=== PATIENT | male | born 1955 | race Caucasian/White ===

== ENCOUNTER 2019-03-15 15:53 | Emergency (ER) | payer MEDICAID ==
[~2019-03-15] VITALS: Ht 182.9 cm; Wt 82.0 kg
[2019-03-15] MEDS ORDERED: LISI-167 PO (17:11)
--- NOTE | 2019-03-15 17:14 | NUR ---
PT C/O CP, SOB WITH PRODUCTIVE COUGH, AND DIZZINESS STARTING THIS AM. PT STATES CP IS 5/10 AT THIS TIME, EKG COMPLETED. PT TO NIBP, CONT PULSE OX, CARD MONITOR. PT WITH EVELVATED BP 181/102, PT STATES HE WAS PREVIOUSLY TAKING LISINOPRIL FOR HIS BP CONTROL BUT STOPPED 3 WEEKS AGO BECAUSE IT GAVE HIM MUSCLE CRAMPS, ERMD UPDATED
[2019-03-15 17:16] LABS: BASOPHILS # (AUTO) 0.03 x10^3/uL (0-0.1); BASOPHILS % (AUTO) 1 % (0-1); EOSINOPHILS # (AUTO) 0.01 x10^3/uL (0-0.4); EOSINOPHILS % (AUTO) 0 % (1-7); LYMPHOCYTES # (AUTO) 1.26 x10^3/uL (1-3.4); LYMPHOCYTES % (AUTO) 25 % (22-44); MD NO; MEAN CORPUSCULAR HEMOGLOBIN 31.9 pg (27.5-34.5); MEAN CORPUSCULAR HGB CONC 32.9 g/dL (33.2-36.2); MEAN CORPUSCULAR VOLUME 96.9 fL (81-97); MEAN PLATELET VOLUME 8.4 fL (7.4-10.4); MONOCYTES # (AUTO) 0.53 x10^3/uL (0.2-0.8); MONOCYTES % (AUTO) 11 % (2-9); NEUTROPHILS # (AUTO) 3.23 x10^3/uL (1.8-6.8); NEUTROPHILS % (AUTO) 64 % (42-75); PLATELET COUNT 282 x10^3/uL (130-400); RED BLOOD COUNT 5.01 x10^6/uL (4.38-5.82); RED CELL DISTRIBUTION WIDTH 14.4 % (9.4-14.8)
[2019-03-15] MEDS ORDERED: ENALAPRILAT 1.25 MG/ML, 1ML ONE (17:23)
[2019-03-15 17:28] LABS: ALANINE AMINOTRANSFERASE 81 U/L (12-78); ALBUMIN 3.4 g/dL (3.4-5.0); ANION GAP 10 mmol/L (5-15); CALCIUM 8.8 mg/dL (8.5-10.1); CHLORIDE 105 mmol/L (98-107); CREATININE 0.85 mg/dL (0.7-1.3)
[2019-03-15 17:29] LABS: D-DIMER 0.65 ug/mlFEU (0.00-0.52); INTERNATIONAL NORMALIZED RATIO 0.95 (0.93-1.1)
[2019-03-15] MEDS ORDERED: ASPIRIN 81 MG TABLET CHEW ONE (17:30)
[2019-03-15] MEDS ORDERED: ENALAPRILAT 1.25 MG/ML, 2ML IV ONE (17:30)
[2019-03-15 17:33] LABS: ALKALINE PHOSPHATASE 114 U/L (45-117); BILIRUBIN,TOTAL 0.2 mg/dL (0.2-1.0); TOTAL PROTEIN 7.5 g/dL (6.4-8.2); TROPONIN I < 0.015 ng/mL (0.000-0.045)
[2019-03-15] MEDS ORDERED: ASPIRIN 81 MG TABLET CHEW PO ONE (18:00)
[2019-03-15] MEDS ORDERED: OMNIPAQUE 350 MG/ML, 100ML BOTTLE ONE (18:37)
--- NOTE | 2019-03-15 18:50 | NUR ---
PT RESTING IN BED, BP GOING DOWN, NAD NOTED, REPORT TO NOC RN
[2019-03-15] MEDS ORDERED: AZITHROMYCIN 500 MG TABLET ONE (19:30)
[2019-03-15] MEDS ORDERED: AZITHROMYCIN 500 MG TABLET PO ONE (19:30)
[2019-03-15 19:33] VITALS: BP 171/98
== END 2019-03-15 19:43 | disposition home or self-care (01) ==
LOC: ED 17:52
DX: J18.9 Pneumonia, unspecified organism (principal); R05 Cough; R06.00 Dyspnea, unspecified
CPT/HCPCS: 36415; 71045; 71275; 80053; 80307; 84484; 85025; 85379; 85610; 85730; 93005; 96374; 99284; Q9967

== ENCOUNTER 2020-08-26 11:15 | Emergency (ER) | payer MEDICAID ==
[~2020-08-26] VITALS: Ht 182.9 cm; Wt 83.5 kg
[~2020-08-26 11:15] MED LIST: LISI-167 PO
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
--- NOTE | 2020-08-26 11:30 | NUR ---
DR LA AT BS FOR EXAM
[2020-08-26] MEDS ORDERED: GABAPENTIN (11:32)
[2020-08-26] MEDS ORDERED: HYDRALAZINE (11:32)
[2020-08-26] MEDS ORDERED: NORVASC (11:32)
[2020-08-26] MEDS ORDERED: GABAPENTIN 300 MG CAPSULE ONE (12:16)
--- NOTE | 2020-08-26 12:17 | NUR ---
DR LA NOTIFIED THAT PT TOOK [facility] TODAY. VO FROM DR LA TO CANCEL [facility] ADMINISTRATION.
[2020-08-26] MEDS ORDERED: AMLODIPINE 5 MG TABLET PO ONE (12:30)
[2020-08-26] MEDS ORDERED: GABAPENTIN 300 MG CAPSULE PO ONE (12:30)
--- NOTE | 2020-08-26 12:52 | NUR ---
PT TO BE DC'D; AWAITING DC DOCUMENTS
[2020-08-26 13:44] VITALS: BP 179/85
== END 2020-08-26 14:13 | disposition home or self-care (01) ==
LOC: ED 13:22
DX: I10 Essential (primary) hypertension (principal); R26.2 Difficulty in walking, not elsewhere classified
CPT/HCPCS: 99283

== ENCOUNTER 2020-11-02 00:47 | Inpatient (IN) | payer MEDICAID ==
[~2020-11-02] VITALS: Ht 182.9 cm; Wt 77.8 kg
[~2020-11-02 00:47] MED LIST changes: +GABAPENTIN; +HYDRALAZINE; +NORVASC
[2020-11-02] MEDS ORDERED: ONDANSETRON ODT 4 MG PO PRN (01:00)
[2020-11-02] MEDS ORDERED: ACETAMINOPHEN 325 MG TABLET PO PRN (01:00)
[2020-11-02] MEDS ORDERED: BISACODYL 10 MG SUPP PR PRN (01:00)
[2020-11-02] MEDS ORDERED: POLYETHYLENE GLYCOL 17 GM PACKET PO PRN (01:00)
[2020-11-02] MEDS ORDERED: DOCUSATE 100 MG CAPSULE PO PRN (01:00)
[2020-11-02] MEDS ORDERED: PLEASE ENTER HEIGHT AND WEIGHT MC SCH (02:30)
[2020-11-02] MEDS ORDERED: GABA300C PO (02:58)
[2020-11-02] MEDS ORDERED: AMLO-150 PO (02:58)
[2020-11-02 03:35] VITALS: BP 140/85
[2020-11-02 03:40] VITALS: BP 140/85
[2020-11-02 07:35] VITALS: BP 167/80
[2020-11-02 08:17] LABS: BASOPHILS % (AUTO) 1 % (0-1); EOSINOPHILS % (AUTO) 4 % (1-7); LYMPHOCYTES % (AUTO) 35 % (22-44); MEAN CORPUSCULAR HEMOGLOBIN 30.8 pg (27.5-34.5); MEAN PLATELET VOLUME 8.4 fL (7.4-10.4); MONOCYTES % (AUTO) 12 % (2-9); NEUTROPHILS % (AUTO) 49 % (42-75); PLATELET COUNT 303 x10^3/uL (130-400); RED BLOOD COUNT 4.27 x10^6/uL (4.38-5.82); RED CELL DISTRIBUTION WIDTH 14.9 % (9.4-14.8)
[2020-11-02 08:19] LABS: MD NO
[2020-11-02 08:24] LABS: CHOL/HDL RATIO 1.8; FREE T4 (FREE THYROXINE) 0.93 ng/dL (0.76-1.46); LDL/HDL RATIO 0.6 (0.5-3.0)
[2020-11-02 08:32] LABS: ALANINE AMINOTRANSFERASE 27 U/L (12-78); ALBUMIN 3.2 g/dL (3.4-5.0); ANION GAP 6 mmol/L (5-15); CALCIUM 8.7 mg/dL (8.5-10.1); CHLORIDE 107 mmol/L (98-107)
[2020-11-02 08:34] LABS: ALKALINE PHOSPHATASE 150 U/L (45-117); BILIRUBIN,TOTAL 0.7 mg/dL (0.2-1.0); CREATININE 0.82 mg/dL (0.7-1.3); TOTAL PROTEIN 6.7 g/dL (6.4-8.2)
[2020-11-02] MEDS: AMLODIPINE 5 MG TABLET PO SCH ×2 (09:00→20:09)
[2020-11-02 09:58] LABS: MICROSCOPIC INDICATED
[2020-11-02] MEDS ORDERED: HYDR25PO PO (15:14)
[2020-11-02] MEDS ORDERED: FLUO20TA25 PO (15:18)
[2020-11-02] MEDS ORDERED: HYDR50CA2 PO (15:20)
[2020-11-02] MEDS: DULOXETINE 30 MG CAPSULE.DR PO SCH (16:13)
[2020-11-02 20:08] VITALS: BP 162/80
[2020-11-02] MEDS: MELATONIN 5 MG TABLET PO SCH (20:08)
[2020-11-03] MEDS ORDERED: ACETAMINOPHEN 500 MG TABLET PO PRN (07:00)
[2020-11-03 07:46] VITALS: BP 152/69
[2020-11-03] MEDS: AMLODIPINE 5 MG TABLET PO SCH ×2 (08:46→21:02)
[2020-11-03] MEDS: DULOXETINE 30 MG CAPSULE.DR PO SCH (08:46)
[2020-11-03] MEDS: LISINOPRIL 10 MG TABLET PO SCH (08:47)
[2020-11-03 19:32] VITALS: BP 139/69
[2020-11-03] MEDS: MELATONIN 5 MG TABLET PO SCH (21:02)
[2020-11-04 06:30] VITALS: BP 146/78
[2020-11-04] MEDS: AMLODIPINE 5 MG TABLET PO SCH ×2 (09:19→20:15)
[2020-11-04] MEDS: DULOXETINE 30 MG CAPSULE.DR PO SCH (09:19)
[2020-11-04] MEDS: LISINOPRIL 10 MG TABLET PO SCH (09:19)
[2020-11-04] MEDS: GABAPENTIN 300 MG CAPSULE PO SCH ×2 (16:30→20:14)
[2020-11-04 20:06] VITALS: BP 143/71
[2020-11-04] MEDS: MELATONIN 5 MG TABLET PO SCH (20:14)
[2020-11-05 07:36] VITALS: BP 112/61
[2020-11-05] MEDS: GABAPENTIN 300 MG CAPSULE PO SCH (09:20)
[2020-11-05] MEDS: AMLODIPINE 5 MG TABLET PO SCH ×2 (09:20→20:26)
[2020-11-05] MEDS: LISINOPRIL 10 MG TABLET PO SCH (09:20)
[2020-11-05] MEDS: DULOXETINE 30 MG CAPSULE.DR PO SCH (09:21)
[2020-11-05] MEDS: GABAPENTIN 400 MG CAPSULE PO SCH ×2 (16:24→20:26)
[2020-11-05 19:46] VITALS: BP 135/64
[2020-11-05] MEDS: MELATONIN 5 MG TABLET PO SCH (20:26)
[2020-11-06 07:58] VITALS: BP 147/82
[2020-11-06] MEDS: DULOXETINE 30 MG CAPSULE.DR PO SCH (09:14)
[2020-11-06] MEDS: LISINOPRIL 10 MG TABLET PO SCH (09:15)
[2020-11-06] MEDS: AMLODIPINE 5 MG TABLET PO SCH ×2 (09:15→20:36)
[2020-11-06] MEDS: GABAPENTIN 400 MG CAPSULE PO SCH ×3 (09:15→20:36)
[2020-11-06 19:59] VITALS: BP 137/72
[2020-11-06] MEDS: MELATONIN 5 MG TABLET PO SCH (20:36)
[2020-11-07 07:49] VITALS: BP 137/77
[2020-11-07] MEDS: DULOXETINE 30 MG CAPSULE.DR PO SCH (08:57)
[2020-11-07] MEDS: LISINOPRIL 10 MG TABLET PO SCH (08:57)
[2020-11-07] MEDS: AMLODIPINE 5 MG TABLET PO SCH ×2 (08:57→20:01)
[2020-11-07] MEDS: GABAPENTIN 400 MG CAPSULE PO SCH ×3 (08:57→20:01)
[2020-11-07] MEDS: MELATONIN 5 MG TABLET PO SCH (20:01)
[2020-11-07] MEDS ORDERED: MELA5TAB14 PO (20:08)
[2020-11-07] MEDS ORDERED: DULO30CA2 PO (20:08)
[2020-11-07] MEDS ORDERED: ACET-1600 PO (20:08)
[2020-11-07] MEDS ORDERED: AMLO-150 PO (20:08)
[2020-11-07] MEDS ORDERED: GABA-827 PO (20:08)
[2020-11-07] MEDS ORDERED: LISI-167 PO (20:08)
[2020-11-07 20:21] VITALS: BP 137/70
[2020-11-08 07:45] VITALS: BP 134/84
[2020-11-08] MEDS: LISINOPRIL 10 MG TABLET PO SCH (08:16)
[2020-11-08] MEDS: AMLODIPINE 5 MG TABLET PO SCH (08:16)
[2020-11-08] MEDS: DULOXETINE 30 MG CAPSULE.DR PO SCH (08:16)
[2020-11-08] MEDS: GABAPENTIN 400 MG CAPSULE PO SCH (08:16)
== END 2020-11-08 14:20 | disposition home or self-care (01) | DRG 751 ==
LOC: 3E 02:05
PROVIDERS: ADMIT Psychiatry & Neurology Psychosomatic Medicine; ATTEND Psychiatry & Neurology Psychosomatic Medicine
DX: F33.2 Major depressive disorder, recurrent severe without psychotic features (principal); B19.20 Unspecified viral hepatitis C without hepatic coma; F11.20 Opioid dependence, uncomplicated; F15.20 Other stimulant dependence, uncomplicated; F17.200 Nicotine dependence, unspecified, uncomplicated; G47.00 Insomnia, unspecified; G89.29 Other chronic pain; I10 Essential (primary) hypertension; Z79.899 Other long term (current) drug therapy
CPT/HCPCS: 36415; 71045; 80053; 80061; 80074; 81001; 82607; 84439; 84443; 85025; 87521; 93005

== ENCOUNTER 2020-11-20 00:25 | Emergency (ER) | payer MEDICAID ==
[~2020-11-20] VITALS: Ht 185.4 cm; Wt 87.0 kg
[~2020-11-20 00:25] MED LIST changes: +ACET-1600 PO; +AMLO-150 PO; +DULO30CA2 PO; +FLUO20TA25 PO; +GABA-827 PO; +GABA300C PO; +HYDR25PO PO; +HYDR50CA2 PO; +MELA5TAB14 PO
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
[2020-11-20 00:47] LABS: BASOPHILS % (AUTO) 0 % (0-1); EOSINOPHILS % (AUTO) 1 % (1-7); LYMPHOCYTES % (AUTO) 33 % (22-44); MEAN CORPUSCULAR HEMOGLOBIN 30.9 pg (27.5-34.5); MEAN CORPUSCULAR HGB CONC 33.6 g/dL (33.2-36.2); MEAN PLATELET VOLUME 7.8 fL (7.4-10.4); MONOCYTES % (AUTO) 9 % (2-9); NEUTROPHILS % (AUTO) 57 % (42-75); PLATELET COUNT 365 x10^3/uL (130-400); RED BLOOD COUNT 5.07 x10^6/uL (4.38-5.82); RED CELL DISTRIBUTION WIDTH 15.1 % (9.4-14.8)
[2020-11-20 00:48] LABS: MD NO
[2020-11-20] MEDS ORDERED: hydrOXyzine 50MG TABLET ONE (00:59)
[2020-11-20 01:00] LABS: ANION GAP 5 mmol/L (5-15); CALCIUM 8.7 mg/dL (8.5-10.1); CHLORIDE 109 mmol/L (98-107); CREATININE 0.93 mg/dL (0.7-1.3)
[2020-11-20 01:01] LABS: ALANINE AMINOTRANSFERASE 27 U/L (12-78); SALICYLATE LEVEL 2.1 mg/dL (2.8-20.0)
[2020-11-20 01:03] LABS: ALKALINE PHOSPHATASE 142 U/L (45-117); TOTAL PROTEIN 8.3 g/dL (6.4-8.2)
--- NOTE | 2020-11-20 01:06 | NUR ---
PT PROVIDED MEAL FROM [employer]
[2020-11-20 01:17] LABS: AMPHETAMINE SCREEN, URINE Negative (Negative); BARBITURATE SCREEN, URINE Negative (Negative); BENZODIAZEPINE SCREEN, URINE Negative (Negative); CANNABINOID SCREEN, URINE Negative (Negative); COCAINE SCREEN, URINE Negative (Negative); METHADONE SCREEN, URINE Negative (Negative); OPIATE SCREEN, URINE Negative (Negative)
[2020-11-20 01:29] LABS: BILIRUBIN,TOTAL < 0.1 mg/dL (0.2-1.0)
--- NOTE | 2020-11-20 01:30 | NUR ---
REPORT TO FRANCINE GAMBLE
--- NOTE | 2020-11-20 02:35 | NUR ---
PT RESTING ON AUNG DELONG, SITTER IN SIGHT FOR SAFETY AWAITING TELE PSYCH.
--- NOTE | 2020-11-20 03:23 | NUR ---
PT RESTING ON AUNG DELONG SITTER IN SIGHT FOR SAFETY AWAITING TELE PSYCH REPORT AT THIS TIME
--- NOTE | 2020-11-20 04:31 | NUR ---
PT RESTING ON GURNEY, SITTER IN SIGHT FOR SAFETY, PER TELEPSYCH PT LEGAL HOLD CONTINUED AND SHOULD GET IN TREATMENT PSYCH
--- NOTE | 2020-11-20 05:31 | NUR ---
PT STILL SLEEPING NO NEEDS SITTER IN SIGHT. HOSPITAL BED ORDERED
--- NOTE | 2020-11-20 06:01 | NUR ---
packet faxed to [facility].
--- NOTE | 2020-11-20 06:07 | NUR ---
TP:[facility] HAS NO OPEN BEDS AT THIS TIME.
--- NOTE | 2020-11-20 07:12 | NUR ---
Assumed pt care. Pt resting calmly in bed. Free of harm. Sitter outside room. Will monitor.
[2020-11-20 08:48] VITALS: BP 150/90
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
--- NOTE | 2020-11-20 10:20 | NUR ---
Pt resting in room with no changes. Pt free of harm. Sitter outside room. Will continue to monitor.
--- NOTE | 2020-11-20 12:14 | NUR ---
Pt calm in bed with no changes. Resting. Denies needs at this time. Sitter outside room. Will continue to monitor.
[2020-11-20] MEDS ORDERED: GABAPENTIN 400 MG CAPSULE ONE (13:14)
[2020-11-20] MEDS ORDERED: GABAPENTIN 400 MG CAPSULE PO ONE (13:30)
[2020-11-20] MEDS ORDERED: DULOXETINE 30 MG CAPSULE.DR PO ONE (13:30)
== END 2020-11-20 13:40 | disposition home or self-care (01) ==
LOC: ED 05:47
DX: F33.9 Major depressive disorder, recurrent, unspecified (principal); R45.850 Homicidal ideations; I10 Essential (primary) hypertension; Z88.8 Allergy status to other drugs, medicaments and biological substances; F17.210 Nicotine dependence, cigarettes, uncomplicated
CPT/HCPCS: 36415; 80053; 80143; 80179; 80307; 80320; 85025; 99285; 99406; Q0177; G0480

== ENCOUNTER 2020-11-29 10:48 | Emergency (ER) | payer MEDICAID ==
[~2020-11-29] VITALS: Ht 182.9 cm; Wt 90.0 kg
--- NOTE | 2020-11-29 10:50 | NUR ---
Pt brought into room by EMS and able to walk over to ED [facility] without issue. Pt with noted slurred speech, highly anxious movements and irritability. EMS reports agitation to level of needed restraints vs medications and able to give medications REGISTERED PRIVATE DUTY NURSE instead of restraints. Pt cooperative with recreational therapy technician attempting to get EKG. tinware lithograph press operator completed.
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
[2020-11-29 11:17] LABS: BASOPHILS % (AUTO) 1 % (0-1); EOSINOPHILS % (AUTO) 1 % (1-7); LYMPHOCYTES % (AUTO) 25 % (22-44); MEAN CORPUSCULAR HEMOGLOBIN 30.9 pg (27.5-34.5); MEAN CORPUSCULAR HGB CONC 33.7 g/dL (33.2-36.2); MEAN PLATELET VOLUME 7.9 fL (7.4-10.4); MONOCYTES % (AUTO) 7 % (2-9); NEUTROPHILS % (AUTO) 67 % (42-75); PLATELET COUNT 254 x10^3/uL (130-400); RED BLOOD COUNT 4.64 x10^6/uL (4.38-5.82); RED CELL DISTRIBUTION WIDTH 15.3 % (9.4-14.8)
[2020-11-29 11:20] LABS: MD NO
--- NOTE | 2020-11-29 11:20 | NUR ---
Lab present at bedside.
[2020-11-29 11:28] LABS: ALBUMIN 3.8 g/dL (3.4-5.0); ANION GAP 8 mmol/L (5-15); CALCIUM 8.5 mg/dL (8.5-10.1); CHLORIDE 110 mmol/L (98-107); CREATININE 0.93 mg/dL (0.7-1.3)
--- NOTE | 2020-11-29 11:46 | NUR ---
Pt reassesed and found in room with blanket pulled over his head, lying in R lateral position in bed with monitoring equipment pulled off.
[2020-11-29 13:38] VITALS: BP 122/62
--- NOTE | 2020-11-29 13:39 | NUR ---
Went in to reassess pt for this hour and found pt ripping off sat and bp monitoring equipment, getting up and dressed and stating he's done and leaving. Pt's belongings retrieved from locker and provided back to pt. Pt escorted to discharge desk. Pt highly irritable and mumbling under his breath "this isn't going to work out great". Pt with noted wide-based but steady gait to d/c desk. Pt refused paperwork and reassessment of temperature.
== END 2020-11-29 13:40 | disposition home or self-care (01) ==
LOC: ED 13:32
DX: F10.120 Alcohol abuse with intoxication, uncomplicated (principal); R94.31 Abnormal electrocardiogram [ECG] [EKG]; I10 Essential (primary) hypertension; Y90.0 Blood alcohol level of less than 20 mg/100 ml
CPT/HCPCS: 36415; 80048; 80320; 82040; 85025; 93005; 99284; G0480

== ENCOUNTER 2021-01-02 06:27 | Inpatient (IN) | payer MEDICAID ==
[~2021-01-02] VITALS: Ht 182.9 cm; Wt 80.5 kg
[2021-01-02] MEDS ORDERED: ONDANSETRON ODT 4 MG PO PRN (13:30)
[2021-01-02] MEDS ORDERED: DOCUSATE 100 MG CAPSULE PO PRN (13:30)
[2021-01-02] MEDS ORDERED: POLYETHYLENE GLYCOL 17 GM PACKET PO PRN (13:30)
[2021-01-02] MEDS ORDERED: PLEASE ENTER HEIGHT AND WEIGHT MC SCH (14:30)
[2021-01-02 15:03] VITALS: BP 125/75
[2021-01-02 18:34] VITALS: BP 146/74
[2021-01-02] MEDS: AMLODIPINE 5 MG TABLET PO SCH (20:26)
[2021-01-02] MEDS: GABAPENTIN 400 MG CAPSULE PO PRN (20:26)
[2021-01-02] MEDS: MELATONIN 5 MG TABLET PO SCH (20:26)
[2021-01-02] MEDS: NICOTINE 14MG/24 HR PATCH.TD24 TD SCH (21:30)
[2021-01-03 05:59] LABS: BASOPHILS % (AUTO) 1 % (0-1); EOSINOPHILS % (AUTO) 4 % (1-7); LYMPHOCYTES % (AUTO) 30 % (22-44); MEAN CORPUSCULAR HEMOGLOBIN 30.8 pg (27.5-34.5); MEAN CORPUSCULAR HGB CONC 33.1 g/dL (33.2-36.2); MEAN PLATELET VOLUME 8.8 fL (7.4-10.4); MONOCYTES % (AUTO) 11 % (2-9); NEUTROPHILS % (AUTO) 55 % (42-75); PLATELET COUNT 167 x10^3/uL (130-400); RED BLOOD COUNT 4.47 x10^6/uL (4.38-5.82); RED CELL DISTRIBUTION WIDTH 14.7 % (9.4-14.8)
[2021-01-03 06:05] LABS: MD NO
[2021-01-03 06:10] LABS: ALANINE AMINOTRANSFERASE 49 U/L (12-78); ALBUMIN 3.1 g/dL (3.4-5.0); ANION GAP 4 mmol/L (5-15); CALCIUM 8.2 mg/dL (8.5-10.1); CHLORIDE 108 mmol/L (98-107); CHOLESTEROL, TOTAL 132 mg/dL (140-239); CREATININE 0.74 mg/dL (0.7-1.3)
[2021-01-03 06:12] LABS: ALKALINE PHOSPHATASE 118 U/L (45-117); BILIRUBIN,TOTAL 0.7 mg/dL (0.2-1.0); CHOL/HDL RATIO 2.9; HDL CHOL % 35 % (26-37); HDL CHOLESTEROL (DIRECT) 46 mg/dL (40-60); LDL CHOLESTEROL,CALCULATED 64 mg/dL (54-169); LDL/HDL RATIO 1.4 (0.5-3.0); TOTAL PROTEIN 6.5 g/dL (6.4-8.2); TRIGLYCERIDES 112 mg/dL (50-200); VLDL CHOLESTEROL 22 mg/dL (0-25)
[2021-01-03 07:41] VITALS: BP 130/90
[2021-01-03] MEDS: ACETAMINOPHEN 325 MG TABLET PO PRN ×2 (08:29→20:20)
[2021-01-03] MEDS: LISINOPRIL 10 MG TABLET PO SCH (08:29)
[2021-01-03] MEDS: DULOXETINE 30 MG CAPSULE.DR PO SCH (08:29)
[2021-01-03] MEDS: AMLODIPINE 5 MG TABLET PO SCH ×2 (08:29→20:20)
[2021-01-03] MEDS: GABAPENTIN 400 MG CAPSULE PO PRN ×2 (08:29→20:20)
[2021-01-03] MEDS ORDERED: hydrOXyzine 50MG TABLET ONE (08:36)
[2021-01-03 10:13] LABS: MICROSCOPIC NOT IND
[2021-01-03 19:49] VITALS: BP 165/91
[2021-01-03] MEDS: MELATONIN 5 MG TABLET PO SCH (20:18)
[2021-01-03] MEDS: NICOTINE 14MG/24 HR PATCH.TD24 TD SCH (20:21)
[2021-01-03] MEDS: HYDROXYZINE PAMOATE 50MG CAP PO PRN (20:31)
[2021-01-04 06:10] VITALS: BP 137/84
[2021-01-04 07:35] VITALS: BP 136/79
[2021-01-04] MEDS: AMLODIPINE 5 MG TABLET PO SCH ×2 (08:44→20:43)
[2021-01-04] MEDS: LISINOPRIL 10 MG TABLET PO SCH (08:44)
[2021-01-04] MEDS: DULOXETINE 30 MG CAPSULE.DR PO SCH (08:45)
[2021-01-04] MEDS: GABAPENTIN 400 MG CAPSULE PO PRN ×2 (08:58→20:43)
[2021-01-04] MEDS: ACETAMINOPHEN 325 MG TABLET PO PRN (08:58)
[2021-01-04 19:29] VITALS: BP 153/85
[2021-01-04] MEDS: MELATONIN 5 MG TABLET PO SCH (20:43)
[2021-01-04] MEDS: HYDROXYZINE PAMOATE 50MG CAP PO PRN (20:44)
[2021-01-04] MEDS: NICOTINE 14MG/24 HR PATCH.TD24 TD SCH (20:46)
[2021-01-05 08:01] VITALS: BP 135/74
[2021-01-05] MEDS: AMLODIPINE 5 MG TABLET PO SCH (08:47)
[2021-01-05] MEDS: LISINOPRIL 10 MG TABLET PO SCH (08:47)
[2021-01-05] MEDS: GABAPENTIN 400 MG CAPSULE PO PRN (08:47)
[2021-01-05] MEDS: DULOXETINE 30 MG CAPSULE.DR PO SCH (08:47)
[2021-01-05] MEDS ORDERED: AMLO-150 PO (09:48)
[2021-01-05] MEDS ORDERED: MELA5TAB14 PO (09:48)
[2021-01-05] MEDS ORDERED: DULO30CA2 PO (09:48)
[2021-01-05] MEDS ORDERED: NICO-486 TD (09:48)
[2021-01-05] MEDS ORDERED: LISI-167 PO (09:48)
[2021-01-05] MEDS ORDERED: HYDR50CA2 PO (09:48)
== END 2021-01-05 12:45 | disposition home or self-care (01) | DRG 751 ==
LOC: 3E 14:13
PROVIDERS: ADMIT Psychiatry & Neurology Psychosomatic Medicine; ATTEND Psychiatry & Neurology Psychosomatic Medicine
DX: F33.3 Major depressive disorder, recurrent, severe with psychotic symptoms (principal); F15.20 Other stimulant dependence, uncomplicated; F10.20 Alcohol dependence, uncomplicated; B18.2 Chronic viral hepatitis C; F17.200 Nicotine dependence, unspecified, uncomplicated; F43.10 Post-traumatic stress disorder, unspecified; I10 Essential (primary) hypertension; Z59.0 Homelessness; Z79.899 Other long term (current) drug therapy; F11.90 Opioid use, unspecified, uncomplicated; F12.90 Cannabis use, unspecified, uncomplicated; Z88.6 Allergy status to analgesic agent; Y90.9 Presence of alcohol in blood, level not specified; G89.29 Other chronic pain; M79.605 Pain in left leg
CPT/HCPCS: 36415; 71045; 80053; 80061; 81003; 85025; 93005

== ENCOUNTER 2021-04-04 17:16 | Emergency (ER) | payer MEDICAID ==
[~2021-04-04] VITALS: Ht 180.3 cm; Wt 80.0 kg
[~2021-04-04 17:16] MED LIST changes: +NICO-486 TD
[2021-04-04 17:18] VITALS: BP 120/65
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
--- NOTE | 2021-04-04 17:31 | NUR ---
ERP AT BS FOR EVAL
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
== END 2021-04-04 18:03 | disposition left against medical advice (07) ==
LOC: ED 17:30
DX: S00.83XA Contusion of other part of head, initial encounter (principal); F10.220 Alcohol dependence with intoxication, uncomplicated; I10 Essential (primary) hypertension; F17.200 Nicotine dependence, unspecified, uncomplicated; Y90.0 Blood alcohol level of less than 20 mg/100 ml; X58.XXXA Exposure to other specified factors, initial encounter; Y93.89 Activity, other specified; Y92.410 Unspecified street and highway as the place of occurrence of the external cause; Y99.8 Other external cause status
CPT/HCPCS: 99283

== ENCOUNTER 2021-04-23 05:51 | Emergency (ER) | payer MEDICAID ==
[~2021-04-23] VITALS: Ht 172.7 cm; Wt 82.0 kg
[2021-04-23 05:52] VITALS: BP 148/85
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
--- NOTE | 2021-04-23 06:53 | NUR ---
report given to emiliana hyman
--- NOTE | 2021-04-23 06:56 | NUR ---
REC BS REPORT PT SLEEPING AT THIS TIME VSS
--- NOTE | 2021-04-23 09:29 | NUR ---
pT REMAINS SLEEPING AROUSES TO VERBAL STIMULI VSS
== END 2021-04-23 10:49 | disposition home or self-care (01) ==
LOC: ED 09:50
DX: F10.120 Alcohol abuse with intoxication, uncomplicated (principal); R51.9 Headache, unspecified; I10 Essential (primary) hypertension; Z90.89 Acquired absence of other organs; Z88.5 Allergy status to narcotic agent; Z88.6 Allergy status to analgesic agent; W22.8XXA Striking against or struck by other objects, initial encounter; Y93.89 Activity, other specified; Y92.89 Other specified places as the place of occurrence of the external cause; Y99.8 Other external cause status; Y90.0 Blood alcohol level of less than 20 mg/100 ml
CPT/HCPCS: 99283

== ENCOUNTER 2021-05-01 13:19 | Emergency (ER) | payer MEDICAID ==
[~2021-05-01] VITALS: Ht 180.3 cm; Wt 81.8 kg
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
--- NOTE | 2021-05-01 13:38 | NUR ---
ERP AT BS FOR EVAL
[2021-05-01] MEDS ORDERED: LORazepam 2 MG/ML, 1ML ONE (13:50)
[2021-05-01] MEDS ORDERED: THIAMINE 100MG TABLET ONE (13:50)
--- NOTE | 2021-05-01 13:59 | NUR ---
PIV PLACED, LABS DRAWN. PT MEDICATED PER EMAR
[2021-05-01] MEDS ORDERED: SODIUM CHLORIDE FLUSH 10ML SYR IVF ONE (14:00)
[2021-05-01] MEDS ORDERED: LORazepam 2 MG/ML, 1ML IVPush ONE (14:00)
[2021-05-01] MEDS ORDERED: CHLORDIAZEPOXIDE 25 MG CAPSULE PO PRN (14:00)
[2021-05-01] MEDS ORDERED: THIAMINE 100MG TABLET PO ONE (14:00)
[2021-05-01] MEDS ORDERED: SODIUM CHLORIDE 0.9% 1,000ML IVBOLUS ONE (14:00)
[2021-05-01 14:19] LABS: ANION GAP 12 mmol/L (5-15); CALCIUM 7.8 mg/dL (8.5-10.1); CHLORIDE 101 mmol/L (98-107)
[2021-05-01 14:20] LABS: CREATININE 0.64 mg/dL (0.7-1.3)
[2021-05-01 14:30] LABS: BASOPHILS % (AUTO) 1 % (0-1); EOSINOPHILS % (AUTO) 0 % (1-7); LYMPHOCYTES % (AUTO) 23 % (22-44); MEAN CORPUSCULAR HEMOGLOBIN 31.4 pg (27.5-34.5); MEAN CORPUSCULAR HGB CONC 33.5 g/dL (33.2-36.2); MEAN PLATELET VOLUME 7.6 fL (7.4-10.4); MONOCYTES % (AUTO) 7 % (2-9); NEUTROPHILS % (AUTO) 69 % (42-75); PLATELET COUNT 330 x10^3/uL (130-400); RED BLOOD COUNT 3.99 x10^6/uL (4.38-5.82); RED CELL DISTRIBUTION WIDTH 14.9 % (9.4-14.8)
--- NOTE | 2021-05-01 14:55 | NUR ---
PT RESTING ON GURNEY, NADN/VSS. CALL LIGHT WITHIN REACH. PT STILL TREMULOUS BUT STATES HE IS FEELING BETTER. BED IN LOWEST POSITION, BED RAILS UP X2.
[2021-05-01] MEDS ORDERED: CHLORDIAZEPOXIDE 5 MG CAPSULE PO PRN (15:00)
[2021-05-01 15:59] VITALS: BP 170/73
--- NOTE | 2021-05-01 16:25 | NUR ---
Patient given discharge instructions and RX, they have confirmed that they understand the instructions. Patient ambulatory with steady gait.
== END 2021-05-01 16:28 | disposition home or self-care (01) ==
LOC: ED 14:13
DX: S50.312A Abrasion of left elbow, initial encounter (principal); F10.139 Alcohol abuse with withdrawal, unspecified; L03.114 Cellulitis of left upper limb; I10 Essential (primary) hypertension; F17.200 Nicotine dependence, unspecified, uncomplicated; Z86.19 Personal history of other infectious and parasitic diseases; Y90.0 Blood alcohol level of less than 20 mg/100 ml; X58.XXXA Exposure to other specified factors, initial encounter; Y93.89 Activity, other specified; Y92.89 Other specified places as the place of occurrence of the external cause; Y99.8 Other external cause status
CPT/HCPCS: 36415; 80048; 82040; 85025; 96361; 96374; 99283; J2060; J7030

== ENCOUNTER → 2021-05-02 | Emergency (ER) | payer MEDICAID ==
[~2021-05-02] VITALS: Ht 180.3 cm; Wt 80.6 kg
[~2021-05-02] MED LIST changes: +DULOXETINE 30 MG CAPSULE.DR PO SCH; +GABAPENTIN 300 MG CAPSULE ONE; +LISI-170 PO; +LORazepam 1MG TABLET ONE; +LORazepam 1MG TABLET PO ONE; +MIRT-14 PO; +ZIPR20CA2 PO; +ZIPRASIDONE 20MG CAPSULE ONE; +ZIPRASIDONE 20MG CAPSULE PO SCH
--- NOTE | 2021-05-02 21:49 | NUR ---
PT PLACED INSIDE ER IN FRONT OF NURSING STATION AWAITING BED
--- NOTE | 2021-05-02 22:15 | NUR ---
PATIENT MOVED TO ROOM 2. 1:[address] SI PRECAUTIONS STARTED. ROOM SECURE. PATIENT PLACED IN GOWN. ALL BELONGINGS SECURE.
--- NOTE | 2021-05-02 22:30 | NUR ---
PATIENT PROVIDED WITH MARV ESPITIAICH, BBQ CHIPS, JUICE AND SPRITE. PATIENT ALSO PROVIDED WITH BLANKETS. PATIENT DENIES ANY OTHER NEEDS AT THIS TIME. 1:[address] SI PRECAUTIONS MAINTAINED. WILL CONTINUE TO MONITOR.
[2021-05-02 22:42] LABS: BASOPHILS % (AUTO) 1 % (0-1); EOSINOPHILS % (AUTO) 1 % (1-7); LYMPHOCYTES % (AUTO) 27 % (22-44); MEAN CORPUSCULAR HEMOGLOBIN 31.8 pg (27.5-34.5); MEAN CORPUSCULAR HGB CONC 33.4 g/dL (33.2-36.2); MEAN PLATELET VOLUME 8.2 fL (7.4-10.4); MONOCYTES % (AUTO) 10 % (2-9); NEUTROPHILS % (AUTO) 61 % (42-75); PLATELET COUNT 285 x10^3/uL (130-400); RED BLOOD COUNT 4.04 x10^6/uL (4.38-5.82); RED CELL DISTRIBUTION WIDTH 15.4 % (9.4-14.8)
[2021-05-02 22:52] LABS: AMPHETAMINE SCREEN, URINE Negative (Negative); BARBITURATE SCREEN, URINE Negative (Negative); BENZODIAZEPINE SCREEN, URINE Positive (Negative); CANNABINOID SCREEN, URINE Negative (Negative); COCAINE SCREEN, URINE Negative (Negative); METHADONE SCREEN, URINE Negative (Negative); OPIATE SCREEN, URINE Negative (Negative)
[2021-05-02 22:54] LABS: ALBUMIN 3.1 g/dL (3.4-5.0); ANION GAP 6 mmol/L (5-15); CALCIUM 8.7 mg/dL (8.5-10.1); CHLORIDE 106 mmol/L (98-107); SALICYLATE LEVEL < 1.7 mg/dL (2.8-20.0)
[2021-05-02 22:57] LABS: ALANINE AMINOTRANSFERASE 31 U/L (12-78); ALKALINE PHOSPHATASE 141 U/L (45-117); BILIRUBIN,TOTAL 0.8 mg/dL (0.2-1.0); CREATININE 0.76 mg/dL (0.7-1.3); TOTAL PROTEIN 7.4 g/dL (6.4-8.2)
--- NOTE | 2021-05-02 23:04 | NUR ---
PATIENT LYING IN STRETCHER WITH EYES CLOSED. NAD. 1:[address] SI PRECAUTIONS IN PLACE. WILL CONTINUE TO MONITOR.
--- NOTE | 2021-05-03 00:30 | NUR ---
PATIENT RESTING IN STRETCHER WITH EYES CLOSED. NAD. 1:[address] ROOM REMAINS SECURE. WILL CONTINUE TO MONITOR. AWAITING TELEPSYCH MD.
--- NOTE | 2021-05-03 01:15 | NUR ---
PATIENT RESTING IN STRETCHER WITH EYES CLOSED. NAD. 1:[address] ROOM REMAINS SECURE. WILL CONTINUE TO MONITOR.
[2021-05-03] MEDS: GABAPENTIN 300 MG CAPSULE PO SCH ×2 (01:55→08:28)
--- NOTE | 2021-05-03 02:00 | NUR ---
PATIENT RESTING IN STRETCHER WITH EYES CLOSED. NAD. 1:[address] ROOM REMAINS SECURE. WILL CONTINUE TO MONITOR.
--- NOTE | 2021-05-03 03:00 | NUR ---
PATIENT RESTING IN STRETCHER WITH EYES CLOSED. NAD. 1:[address] ROOM REMAINS SECURE. WILL CONTINUE TO MONITOR.
--- NOTE | 2021-05-03 03:05 | NUR ---
PATIENT RESTING IN STRETCHER WITH EYES CLOSED. NAD. 1:[address] ROOM REMAINS SECURE. WILL CONTINUE TO MONITOR.
--- NOTE | 2021-05-03 03:06 | NUR ---
[facility] ([facility]) STATES THEY DO NOT HAVE ANY BEDS RIGHT NOW, AND WILL HAVE A BED AVALIABLE AROUND 10AM WHEN THEY HAVE A DISCHARGE FAXING PACKET TO [facility], [facility], [facility], [facility]
--- NOTE | 2021-05-03 03:36 | NUR ---
[facility] called stating they can offer patient self pay only at this time.
--- NOTE | 2021-05-03 04:17 | NUR ---
PATIENT RESTING IN STRETCHER WITH EYES CLOSED. NAD. 1:[address] ROOM REMAINS SECURE. PROVIDED WITH MORE SPRITE REQUESTED. DENIES ANY OTHER NEEDS AT THIS TIME. WILL CONTINUE TO MONITOR.
--- NOTE | 2021-05-03 04:50 | NUR ---
CALLED [facility] FOR INPATIENT BED.
--- NOTE | 2021-05-03 05:08 | NUR ---
PATIENT RESTING IN STRETCHER WITH EYES CLOSED. NAD. 1:[address] ROOM REMAINS SECURE. WILL CONTINUE TO MONITOR.
--- NOTE | 2021-05-03 06:10 | NUR ---
PATIENT RESTING IN STRETCHER. NAD. VSS. 1:[address] ROOM REMAINS SECURE. WILL CONTINUE TO MONITOR.
--- NOTE | 2021-05-03 06:49 | NUR ---
REPORT GIVEN TO FRANCINE POWELL.
--- NOTE | 2021-05-03 07:01 | NUR ---
ASSUMING CARE OF PT AFTER BEDSIDE REPORT. PT ASLEEP WITH EVEN AND UNLABORED RESPIRATIONS. SAFETY PRECAUTIONS IN PLACE. SITTER AT BEDSIDE.
--- NOTE | 2021-05-03 07:51 | NUR ---
ASSUMING CARE OF PT AFTER BEDSIDE REPORT. PT ASLEEP WITH EVEN AND UNLABORED RESPIRATIONS. SAFETY PRECAUTIONS IN PLACE. SITTER AT BEDSIDE.
--- NOTE | 2021-05-03 08:22 | NUR ---
YELLOW MED REQ SLIP SENT TO PHARMACY FOR PT EVARISTO.
--- NOTE | 2021-05-03 08:47 | NUR ---
pt provided with meal tray. sitting up eating. safety precautions in place. sitter at bedside.
--- NOTE | 2021-05-03 09:26 | NUR ---
PT ASLEEP WITH EVEN AND UNLABORED RESPIRATIONS. NADN. SAFETY PRECAUTIONS IN PLACE. SITTER AT BEDSIDE.
--- NOTE | 2021-05-03 10:19 | NUR ---
SYEDA PSYCH ARMORING MACHINE OPERATOR AT BEDSIDE
--- NOTE | 2021-05-03 10:44 | NUR ---
PT ASLEEP WITH EVEN AND UNLABORED RESPIRATIONS. NADN. SAFETY PRECAUTIONS IN PLACE. SITTER AT BEDSIDE.
--- NOTE | 2021-05-03 11:15 | NUR ---
laxmi newby collected and walked down to lab
--- NOTE | 2021-05-03 12:19 | NUR ---
PT PROVIDED WITH LUNCH TRAY. SITTING UP EATING FOOD. SITTER AT BEDSIDE. SAFETY PRECAUTIONS IN PLACE.
--- NOTE | 2021-05-03 13:13 | NUR ---
PT RESTING IN BED. NADN. SAFETY PRECAUTIONS IN PLACE. SITTER AT BEDSIDE.
--- NOTE | 2021-05-03 14:18 | NUR ---
REPORT FROM SHERRY ESCAMILLA. PT TO GO TO UNIT AFTER RAPID COVID NEG.
[2021-05-03 14:48] VITALS: BP 171/99
--- NOTE | 2021-05-03 14:49 | NUR ---
PT SLEEPING, VITALS ASSESSED, WNL, GIVEN BLANKETS, LIGHTS TURNED OFF, SITTER IN PLACE
== END ==
LOC: ED 22:17 → EDIP 05-03 01:33 → UNDOADMOB 05-03 01:33
DX: R45.851 Suicidal ideations (principal); F60.0 Paranoid personality disorder; R25.9 Unspecified abnormal involuntary movements; F32.9 Major depressive disorder, single episode, unspecified; I10 Essential (primary) hypertension; F17.200 Nicotine dependence, unspecified, uncomplicated
CPT/HCPCS: 36415; 80053; 80299; 80307; 80320; 80329; 85025; 87426; G0480

== ENCOUNTER 2021-05-03 12:06 | Inpatient (IN) | payer MEDICAID ==
[~2021-05-03] VITALS: Ht 180.3 cm; Wt 80.3 kg
[~2021-05-03 12:06] MED LIST changes: -DULOXETINE 30 MG CAPSULE.DR PO SCH; -GABAPENTIN 300 MG CAPSULE ONE; -LISI-170 PO; -LORazepam 1MG TABLET ONE; -LORazepam 1MG TABLET PO ONE; -MIRT-14 PO; -ZIPR20CA2 PO; -ZIPRASIDONE 20MG CAPSULE ONE; -ZIPRASIDONE 20MG CAPSULE PO SCH
[2021-05-03] MEDS ORDERED: POLYETHYLENE GLYCOL 17 GM PACKET PO PRN (14:30)
[2021-05-03] MEDS ORDERED: DOCUSATE 100 MG CAPSULE PO PRN (14:30)
[2021-05-03] MEDS ORDERED: ACETAMINOPHEN 325 MG TABLET PO PRN (14:30)
[2021-05-03] MEDS ORDERED: BISACODYL 10 MG SUPP PR PRN (14:30)
[2021-05-03] MEDS ORDERED: ONDANSETRON ODT 4 MG PO PRN (14:30)
[2021-05-03 17:40] VITALS: BP 155/97
[2021-05-03] MEDS: GABAPENTIN 300 MG CAPSULE PO SCH ×2 (17:45→20:17)
[2021-05-03] MEDS ORDERED: NICOTINE 14MG/24 HR PATCH.TD24 TD SCH (19:30)
[2021-05-03 19:45] VITALS: BP 159/82
[2021-05-03] MEDS: ZIPRASIDONE 20MG CAPSULE PO SCH (20:17)
[2021-05-03] MEDS: CEPHALEXIN 500 MG CAPSULE PO SCH (20:18)
[2021-05-04] MEDS: CEPHALEXIN 500 MG CAPSULE PO SCH ×4 (05:50→19:59)
[2021-05-04 07:02] LABS: CHOL/HDL RATIO 2.1; FREE T4 (FREE THYROXINE) 0.91 ng/dL (0.76-1.46); LDL/HDL RATIO 0.9 (0.5-3.0)
[2021-05-04 07:36] VITALS: BP 166/88
[2021-05-04 08:47] LABS: MICROSCOPIC NOT IND
[2021-05-04] MEDS: ZIPRASIDONE 20MG CAPSULE PO SCH ×2 (10:17→19:59)
[2021-05-04] MEDS: DULOXETINE 30 MG CAPSULE.DR PO SCH (10:17)
[2021-05-04] MEDS: GABAPENTIN 300 MG CAPSULE PO SCH ×3 (10:18→19:59)
[2021-05-04 19:26] VITALS: BP 159/84
[2021-05-04] MEDS: MELATONIN 5 MG TABLET PO SCH (19:59)
[2021-05-04] MEDS: LISINOPRIL 10 MG TABLET PO SCH (19:59)
[2021-05-05] MEDS: CEPHALEXIN 500 MG CAPSULE PO SCH ×4 (06:13→20:26)
[2021-05-05 07:06] VITALS: BP 151/77
[2021-05-05] MEDS: LISINOPRIL 10 MG TABLET PO SCH (08:18)
[2021-05-05] MEDS: GABAPENTIN 300 MG CAPSULE PO SCH ×3 (08:18→20:26)
[2021-05-05] MEDS: ZIPRASIDONE 20MG CAPSULE PO SCH ×2 (08:18→20:26)
[2021-05-05] MEDS: DULOXETINE 30 MG CAPSULE.DR PO SCH (08:18)
[2021-05-05 19:08] VITALS: BP 178/84
[2021-05-05] MEDS ORDERED: LISINOPRIL 10 MG TABLET PO ONE (20:00)
[2021-05-05] MEDS: MELATONIN 5 MG TABLET PO SCH (20:26)
[2021-05-06] MEDS: CEPHALEXIN 500 MG CAPSULE PO SCH ×4 (06:14→20:19)
[2021-05-06 07:36] VITALS: BP 158/81
[2021-05-06] MEDS: DULOXETINE 30 MG CAPSULE.DR PO SCH (08:40)
[2021-05-06] MEDS: ZIPRASIDONE 20MG CAPSULE PO SCH ×2 (08:41→20:19)
[2021-05-06] MEDS: LISINOPRIL 20 MG TABLET PO SCH (08:41)
[2021-05-06] MEDS: GABAPENTIN 300 MG CAPSULE PO SCH ×3 (08:41→20:18)
[2021-05-06] MEDS ORDERED: MELATONIN 5 MG TABLET PO PRN (11:00)
[2021-05-06] MEDS: NEOSPORIN OINT, 15GM TP SCH ×2 (11:15→20:19)
[2021-05-06] MEDS: HYDROXYZINE PAMOATE 50MG CAP PO PRN (11:28)
[2021-05-06 19:34] VITALS: BP 126/76
[2021-05-06] MEDS: MIRTAZAPINE 15 MG TABLET PO SCH (20:19)
[2021-05-07] MEDS: CEPHALEXIN 500 MG CAPSULE PO SCH ×4 (06:16→20:00)
[2021-05-07 07:26] VITALS: BP 134/75
[2021-05-07] MEDS: GABAPENTIN 300 MG CAPSULE PO SCH ×3 (09:03→20:00)
[2021-05-07] MEDS: ZIPRASIDONE 20MG CAPSULE PO SCH ×2 (09:03→20:00)
[2021-05-07] MEDS: LISINOPRIL 20 MG TABLET PO SCH (09:03)
[2021-05-07] MEDS: DULOXETINE 30 MG CAPSULE.DR PO SCH (09:03)
[2021-05-07] MEDS: NEOSPORIN OINT, 15GM TP SCH ×2 (09:04→20:39)
[2021-05-07 19:18] VITALS: BP 134/72
[2021-05-07] MEDS: MIRTAZAPINE 15 MG TABLET PO SCH (19:59)
[2021-05-08] MEDS: CEPHALEXIN 500 MG CAPSULE PO SCH ×4 (06:01→19:52)
[2021-05-08 06:37] VITALS: BP 135/79
[2021-05-08] MEDS: ZIPRASIDONE 20MG CAPSULE PO SCH ×2 (08:31→19:52)
[2021-05-08] MEDS: DULOXETINE 30 MG CAPSULE.DR PO SCH (08:31)
[2021-05-08] MEDS: GABAPENTIN 300 MG CAPSULE PO SCH ×3 (08:31→19:51)
[2021-05-08] MEDS: NEOSPORIN OINT, 15GM TP SCH ×2 (09:30→19:55)
[2021-05-08] MEDS: LISINOPRIL 20 MG TABLET PO SCH (09:30)
[2021-05-08 19:32] VITALS: BP 131/76
[2021-05-08] MEDS: MIRTAZAPINE 15 MG TABLET PO SCH (19:52)
[2021-05-09] MEDS: CEPHALEXIN 500 MG CAPSULE PO SCH (05:25)
[2021-05-09 07:33] VITALS: BP 137/85
[2021-05-09] MEDS: DULOXETINE 30 MG CAPSULE.DR PO SCH (08:32)
[2021-05-09] MEDS: ZIPRASIDONE 20MG CAPSULE PO SCH (08:32)
[2021-05-09] MEDS: GABAPENTIN 300 MG CAPSULE PO SCH (08:33)
[2021-05-09] MEDS: LISINOPRIL 20 MG TABLET PO SCH (08:33)
[2021-05-09] MEDS: NEOSPORIN OINT, 15GM TP SCH (08:36)
[2021-05-09] MEDS: HYDROXYZINE PAMOATE 50MG CAP PO PRN (11:01)
[2021-05-09] MEDS ORDERED: DULO30CA2 PO (11:17)
[2021-05-09] MEDS ORDERED: GABA300C PO (11:17)
[2021-05-09] MEDS ORDERED: HYDR50CA2 PO (11:17)
[2021-05-09] MEDS ORDERED: LISI-170 PO (11:17)
[2021-05-09] MEDS ORDERED: MIRT-14 PO (11:17)
[2021-05-09] MEDS ORDERED: ZIPR20CA2 PO (11:17)
== END 2021-05-09 14:30 | disposition home or self-care (01) | DRG 885 ==
LOC: 3E 16:17
PROVIDERS: ADMIT Psychiatry & Neurology Psychosomatic Medicine; ATTEND Psychiatry & Neurology Psychosomatic Medicine
DX: F33.3 Major depressive disorder, recurrent, severe with psychotic symptoms (principal); B18.2 Chronic viral hepatitis C; F15.20 Other stimulant dependence, uncomplicated; R45.851 Suicidal ideations; F12.90 Cannabis use, unspecified, uncomplicated; F17.210 Nicotine dependence, cigarettes, uncomplicated; F43.10 Post-traumatic stress disorder, unspecified; G47.00 Insomnia, unspecified; G89.29 Other chronic pain; Z20.822 Contact with and (suspected) exposure to COVID-19; I10 Essential (primary) hypertension; M79.605 Pain in left leg; F10.10 Alcohol abuse, uncomplicated; Z59.0 Homelessness; Z79.899 Other long term (current) drug therapy; Z88.5 Allergy status to narcotic agent; Z88.8 Allergy status to other drugs, medicaments and biological substances
CPT/HCPCS: 36415; 80053; 80061; 80299; 80307; 80320; 80329; 81003; 84439; 84443; 85025; 87426; 87635; 93005; G0480